=== PATIENT | female | born 1950 | race Two or more races ===

== ENCOUNTER 2025-06-08 19:48 | Emergency (ER) | payer MEDICARE, OTHER ==
[~2025-06-08] VITALS: Ht 172.7 cm; Wt 72.1 kg
[2025-06-08 20:49] LABS: PLATELET COUNT (AUTO) 344 K/uL (150-450); RED BLOOD CELL COUNT(AUTO) 2.49 MIL/uL (4.0-5.2); RED CELL DISTRIBUTION WIDTH 14.8 % (11.5-15.0); WHITE BLOOD COUNT (AUTO) 9.4 K/uL (4.3-11.0)
[2025-06-08 20:59] LABS: ASPARTATE AMINOTRANSFERASE 11 U/L (15-37); CALCIUM, SERUM 8.1 mg/dL (8.5-10.1); CREATININE 1.5 mg/dL (0.6-1.3); SODIUM SERUM 139 mmol/L (136-145); TOTAL PROTEIN, SERUM 6.1 g/dL (6.4-8.2); UREA NITROGEN, BLOOD 45 mg/dL (7-18)
[2025-06-08 21:09] LABS: INR 1.43 (0.91-1.10)
[2025-06-08 21:48] LABS: OCCULT BLOOD STOOL POSITIVE (NEGATIVE)
[2025-06-08 22:09] LABS: LYMPHOCYTES % (MANUAL) 28 % (16-48); MONOCYTES % (MANUAL) 4 % (0-11.0); NEUTROPHILS % (MANUAL) 68 (42-76); PLATELET ESTIMATE ADEQUATE
[2025-06-08] MEDS: PROTHROMBIN COMPLEX CONCENTR 500 UNIT VIAL IV ONE (22:22)
[2025-06-09 07:36] LABS: PLATELET COUNT (AUTO) 245 K/uL (150-450); RED BLOOD CELL COUNT(AUTO) 3.59 MIL/uL (4.0-5.2); RED CELL DISTRIBUTION WIDTH 15.2 % (11.5-15.0); WHITE BLOOD COUNT (AUTO) 8.3 K/uL (4.3-11.0)
[2025-06-09 08:11] VITALS: TEMP 98.8
[2025-06-09 08:54] VITALS: BP 95/55; O2SAT 98
== END 2025-06-09 09:45 | disposition short-term general hospital (02) ==
LOC: ER 19:48
DX: K92.2 Gastrointestinal hemorrhage, unspecified (principal); D64.9 Anemia, unspecified; I10 Essential (primary) hypertension; I48.91 Unspecified atrial fibrillation; Z79.01 Long term (current) use of anticoagulants
CPT/HCPCS: 99291; 36430; 93005; 74174; 85027; 80048; 83690; 80076; 82272; 85007; 36415 ×2; 84484; 85730; 86850; 86923 ×3; 85025; A4223; J7168; P9016; P9017